=== PATIENT | male | born 1965 | race Caucasian/White ===

== ENCOUNTER 2016-08-03 09:59 | Emergency (ER) | payer BC ==
[2016-08-03 10:26] LABS: ABSOLUTE NEUTROPHIL COUNT 3.5 K/mm3 (1.8-7.7); BASO # 0.1 K/mm3 (0.0-0.2); BASO % 0.9 % (0.2-1.0); EOS # 0.2 (0.0-0.5); EOS % 3.3 % (0.9-2.9); HEMATOCRIT 42.1 % (32.0-52.0); HEMOGLOBIN 14.8 gm/l (14.0-18.0); IMM NEUT% 0.1 % (0-1); LYMPH # 2.6 (1.0-4.8); LYMPH % 37.1 % (15-45); MEAN CELL VOLUME 88.8 fl (80.0-94.0); MEAN CORPUSCULAR HEMOGLOBIN 31.2 pg (27.0-31.0); MEAN CORPUSCULAR HGB CONC 35.2 g/dl (33.0-37.0); MEAN PLATELET VOLUME 10.2 fl (7.4-10.4); MONO # 0.6 (0.0-0.8); MONO % 8.8 % (4-12); NEUT % 49.8 % (43-75); PLATELET COUNT 203 K/mm3 (130-400); RED CELL DISTRIBUTION WIDTH 11.7 % (11.5-14.5)
[2016-08-03 10:42] LABS: ALB/GLOB RATIO 1.4 (>1.0); ALBUMIN 4.3 gm/dL (3.5-5.7); CALCIUM 9.4 mg/dL (8.6-10.3)
[2016-08-03 10:45] LABS: TROPONIN I < 0.01 ng/ml (0.0-0.06)
[2016-08-03 10:48] LABS: CKMB ISOENZYME 1.3 ng/ml (0.6-6.3)
[2016-08-03] MEDS ORDERED: ASPIRIN CHEWTAB 81 MG TABLET ONE (13:39)
--- NOTE | 2016-08-03 16:58 | NUC MED ---
Exam: Nuclear medicine myocardial SPECT, ejection fraction and wall motion Comparison: None Indication: Chest pain, family history of heart disease. Technique: 13.9 mCi of technetium 99m sestamibi were administered for the rest portion of the exam and SPECT imaging was obtained per protocol. Stress was achieved Stefan protocol in which 89% of maximum predicted heart rate was met. Please see separate EKG report, which did reflect Findings consistent with exercise-induced myocardial ischemia of the inferior lateral distribution. At maximum stress, 44.2 mCi of technetium 99m sestamibi were administered and SPECT imaging was obtained per protocol. Findings: Ejection fraction is calculated at 38%. There is global hypokinesia. Septum is not visualized during gated stress and presumably akinetic. Examination is markedly positive for stress-induced ischemia, which appears to involve all mariano but especially the septum. There is a moderate to severe perfusion defect within the entire septum at stress, which almost completely normalizes at rest. There is also a severe perfusion defect extending the entire length of the inferior wall, which demonstrates relatively normal perfusion at rest although mild defect remains at this location at rest, likely related to attenuation artifact. Finally, there is approximately 20-30% decreased perfusion within the lateral wall extending from the mid ventricular level to the apex which is normal at rest. Impression: 1. Significant stress-induced ischemia most pronounced within the septum and inferior mariano and to a lesser extent the distal lateral wall reflecting multivessel disease. 2. 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 3. Ejection fraction is calculated at 38% but this may be overestimated. Findings were discussed with Dr. Coet at 1645 hours 08/03/2016.
== END 2016-08-03 18:01 | disposition other institution (70) ==
LOC: ED 09:59
DX: I24.9 Acute ischemic heart disease, unspecified (principal); F41.9 Anxiety disorder, unspecified; F17.210 Nicotine dependence, cigarettes, uncomplicated
CPT/HCPCS: 85025; 82550; 82553; 80053; 84484; 78452; 99284; 93017; 99285; A9270; A9500

== ENCOUNTER 2016-08-11 21:57 | Emergency (ER) | payer BC | END 2016-08-11 23:23 | disposition home or self-care (01) | LOC: ED 21:57 | DX: H02.89 Other specified disorders of eyelid (principal) ==